=== PATIENT | female | born 1965 ===

== ENCOUNTER 2018-02-27 09:50 | Day surgery (SDC) | payer BC ==
[2018-02-14 09:48] VITALS: BMI 34.5
[2018-02-27] MEDS ORDERED: cefTRIAXone 1 gm 1 GM/100 ML BAG IVPB ONE (12:19)
[2018-02-27] MEDS ORDERED: Iohexol 240 (50 ml) ONE (12:19)
[2018-02-27] MEDS ORDERED: Midazolam 2 MG/2 ML VIAL ONE (12:21)
[2018-02-27] MEDS ORDERED: Propofol 10 mg/ml Inj (20 ML) ONE (12:21)
[2018-02-27] MEDS ORDERED: Gentamicin 80 mg in 0.9% NS 80 MG/100 ML BAG IVPB SCH (12:30)
[2018-02-27] MEDS ORDERED: Oxycodone/Acetaminophen 5/325 mg Tab PO PRN (12:33)
[2018-02-27] MEDS ORDERED: HYDROmorphone 0.5 mg/0.5 ml ISec IVP PRN (12:57)
[2018-02-27 14:28] VITALS: O2SAT 100
[2018-02-27 15:39] VITALS: BP 102/58; PULSE 66; RESP 15; TEMP 97.1
--- NOTE | 2018-02-27 17:24 | RAD ---
Date of service: 02/27/2018 HISTORY: HEMATURIA COMPARISON: None available. FINDINGS: BOWEL: Constipation without fecal impaction or obstruction. BONES: Normal. OTHER FINDINGS: None. IMPRESSION: No significant or acute findings to account for/ related to the clinical presentation.
--- NOTE | 2018-02-27 17:33 | RAD ---
Date of service: 02/27/2018 PROCEDURE: Intraoperative Fluoroscopy. HISTORY: HEMATURIA FINDINGS: Fluoroscopic assistance was provided for retrograde. Please refer to the operative report from LAWANDA Durbin, , MD SY. Total fluoroscopic time (continuous mode) utilized during the procedure 1.8 seconds. Dose report: DLP [id number] (mGy/m2)
--- NOTE | 2018-03-05 02:51 | HP ---
UROLOGY ADMISSION NOTE REASON FOR ADMISSION: Workup on hematuria. HISTORY OF PRESENT ILLNESS: Mrs. Dennis is a pleasant lady who is 52-year-old. She previously had a CT scan of the abdomen and pelvis, no abnormalities detected. There was a fibroid uterus noted, but no appreciable urology abnormalities, nothing to explain a hematuria. She is here today for a cystoscopy and retrograde pyelogram. Possible biopsy and fulguration. PAST MEDICAL AND SURGICAL HISTORY: As listed in the chart. Otherwise, unremarkable. She has no history of NC or CVA. SOCIAL HISTORY: Unremarkable. She works REVIEW OF SYSTEMS: As above. Noncontributory. MEDICATIONS: See chart. ALLERGIES: SEE CHART. PHYSICAL EXAMINATION: GENERAL: A well-developed, well-nourished female, in no apparent distress. VITAL SIGNS: Within normal limits and noted in the chart. LUNGS: Clear. HEART: Normal S1 and S2. ABDOMEN: Overall soft. Nontender. No flank mass appreciated. PELVIS AND RECTAL: No pelvic or rectal masses. It is difficult to palpate the uterus. There is noted to be a fibroid uterus. From urology standpoint, otherwise, unremarkable. There is no real cystocele, rectocele. See the operative note. DIAGNOSES: Hematuria and voiding dysfunction. PLAN: The plan is as follows: We are going to plan for cystoscopy, possible bladder biopsy and fulguration, and bilateral retrograde pyelogram, and then further plans, we will follow. Anival Klein MD
--- NOTE | 2018-03-05 06:47 | OP ---
PROCEDURE DATE: 02/27/2018 UROLOGY OPERATIVE REPORT PREOPERATIVE DIAGNOSES: Hematuria, voiding dysfunction, nocturia, and fibroid uterus. POSTOPERATIVE DIAGNOSES: Hematuria, voiding dysfunction, nocturia, and fibroid uterus. PROCEDURES: Cystoscopy, bilateral retrograde pyelogram. ANESTHESIA: Exam under general anesthesia. COMPLICATIONS: There were no complications. ESTIMATED BLOOD LOSS: Less than 10 mL. FINDINGS: 1. Normal bladder mucosa, no abnormalities. 2. Clear efflux in both kidneys. 3. Essentially normal upper tract on the films submitted by radiologist. No abnormalities are appreciated. SURGEON: Anival Klein MD. INDICATIONS: See history and physical for the details. A very pleasant lady here for the above procedures. DESCRIPTION OF PROCEDURE: After obtaining informed consent, the patient was placed on table. Routine monitors were placed. Time-out was called to confirm the patient and position. We introduced the cystoscope via the urethra. Bladder was inspected carefully. there were no bladder tumors. Ureteral orifice identified. Bilateral and retrograde pyelogram performed. Films save and submitted by the radiologist with no obvious urology abnormality. Bladder was emptied. Cystoscope removed. normal external genitalia. No pelvic or rectal abscess. Essentially, on the CT scan, the patient was noted to have fibroid uterus. The patient tolerated the procedure without complications. Anival Klein MD
== END 2018-02-27 15:40 | disposition home or self-care (01) ==
LOC: C.SDS 09:50
PROVIDERS: ATTEND Urology
DX: R31.9 Hematuria, unspecified (principal); D25.9 Leiomyoma of uterus, unspecified
CPT/HCPCS: 52005; 74018; J0696; J1170; J1580; J2405